=== PATIENT | male | born 2005 | race Caucasian/White ===

== ENCOUNTER 2023-12-01 16:59 | Emergency (ER) | payer MEDICAID ==
[~2023-12-01] VITALS: Ht 177.8 cm; Wt 51.7 kg
[~2023-12-01 16:59] MED LIST: [UNRECOGNIZED DRUG - OTHER]
[2023-12-01 17:09] VITALS: BP 111/69; PULSE 86; RESP 18; TEMP 98.2; O2SAT 100
[2023-12-01] MEDS: IBUPROFEN 600 MG TAB PO ONE (17:30)
[2023-12-01] MEDS ORDERED: IBUP-1842 PO (18:32)
[2023-12-01] MEDS ORDERED: IBUPROFEN 600 MG TAB ONE (18:57)
[2023-12-01 20:00] VITALS: BP 111/69; PULSE 86; RESP 18; TEMP 98.2; O2SAT 100
== END 2023-12-01 20:00 | disposition home or self-care (01) ==
LOC: MED 16:59
DX: S63.592A Other specified sprain of left wrist, initial encounter (principal); S39.012A Strain of muscle, fascia and tendon of lower back, initial encounter; M25.571 Pain in right ankle and joints of right foot; Y04.0XXA Assault by unarmed brawl or fight, initial encounter; Y93.89 Activity, other specified; Y92.89 Other specified places as the place of occurrence of the external cause; Y99.8 Other external cause status; Z79.899 Other long term (current) drug therapy
CPT/HCPCS: 72072; 72100; 73110; 73610; 99284